=== PATIENT | male | born 1955 | race Caucasian/White ===

== ENCOUNTER 2016-11-06 08:57 | Observation (INO) ==
[2016-11-06] MEDS ORDERED: Aspirin 81 MG TAB.CHEW PO ONE (09:09)
--- NOTE | 2016-11-06 09:14 | Emergency Department Note ---
Disposition Clinical Impression: Atypical chest pain Disposition: Admitted As Inpatient Condition: Good Referrals: Parth Chapman DO [Primary Care Provider] - Forms: ED Satisfaction Letter Time of Disposition: 10:00 Chest Pain HPI - General Chief Complaint: ED Chest Pain Stated Complaint: C/P Time Seen by Provider: 11/06/16 09:00 Source: patient, family () Mode of arrival: wheelchair Limitations: no limitations Vital Signs Reviewed: Yes Nursing Notes Reviewed: Yes - History of Present Illness HPI Narrative: 61-year-old male history of CAD s/p PCI x2 (most recent 2014), PVD, hypertension , hyperlipidemia, pack per day smoker presents with a concern for heart attack. Patient reports this morning at 7 o'clock he woke up feeling lightheaded with the feeling of passing out with associated left-sided chest pressure with no radiation. Denies loss of consciousness. Symptoms lasted for 1 minute. He is currently asymptomatic. He did not take anything for the pain. He took a baby aspirin this morning. He did not feel sure breath, diaphoretic, nauseated or any episode of vomiting. This concerned him as his prior to heart attacks were similar nature. 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 He drank water and improved at that time. His last heart catheterization was 2 years ago. He denies any recent illness, fever, cough, vertigo, headache. His lead janitor is Dr. Rick. His 1st heart attack was in 2008 in the most recent 2014 required re-stenting. He denies any falls or injuries. Denies any history of blood clots. Recently started on Chantix 09/06/2016. Pt complaint: chest pain Severity scale (1-10): 2 - Related Data Previous Rx's Medication Instructions Recorded Hydrocodone/Acetaminophen [[place] 1 tab PO Q6H PRN #15 tab 01/18/16 5-325 Tablet] Allergies Allergy/AdvReac Type Severity Reaction Status Date / Time No Known Allergies Allergy Verified 11/06/16 09:21 All systems ED: reviewed and negative except as stated. Constitutional: Reports: weakness. Denies: fever, chills Cardiovascular: Reports: chest pain. Denies: palpitations, dyspnea on exertion Respiratory: Denies: cough, dyspnea Gastrointestinal: Denies: abdominal pain, nausea, vomiting, diarrhea Genitourinary: Denies: urgency, dysuria Musculoskeletal: Denies: back pain, neck pain Integumentary: Denies: rash, abrasion Neurological: Denies: headache, confusion Endocrine: Reports: fatigue Chest Pain PMH - Past Medical History Medical history: Reports: hyperlipidemia, myocardial infarction, peripheral artery disease Psychiatric history: Reports: no psych history Prior Cardiac Testing/Procedures: Stenting - Social History Smoking Status: Current every day smoker Alcohol use: Reports: occasionally Drug use: Reports: none Physical Exam - General Limitations: no limitations General appearance: alert, in no apparent distress - Head Head exam: atraumatic, normocephalic, normal inspection - Eye Eye exam: Present: normal appearance, PERRL, EOMI. Absent: scleral icterus - ENT ENT exam: normal exam, normal oropharynx, mucous membranes moist - Neck Neck exam: Present: normal inspection, full ROM, trachea midline. Absent: tenderness - Chest Chest inspection: Present: normal inspection, symmetric chest wall rise. Absent : tenderness - Respiratory Respiratory exam: Present: normal lung sounds bilaterally. Absent: respiratory distress, wheezes - Cardiovascular Cardiovascular exam: Present: regular rate, normal rhythm, normal heart sounds. Absent: systolic murmur, diastolic murmur - Abdominal Exam Abdominal exam: Present: soft, Non-Tender, normal bowel sounds. Absent: tenderness, distention, guarding, rebound, rigidity - Extremities Exam Extremities exam: Present: normal inspection, full ROM, normal capillary refill. Absent: tenderness, pedal edema, calf tenderness - Back Exam Back exam: Present: normal inspection, full ROM. Absent: tenderness, CVA tenderness (R), CVA tenderness (L), vertebral tenderness - Neurological Exam Neurological exam: Present: alert, oriented X3, CN II-XII intact, normal gait - Expanded Neurological Exam Patient oriented to: Present: person, place, time Speech: Present: fluid speech Cranial nerves: EOM function (II, III, IV, ): Normal, facial sensation (V): Normal, facial palsy (VII): Normal, gag reflex (IX): Normal, spinal accessory function (XI): Normal, tongue deviation (XII): Normal Motor strength - LUE: 5/5 Motor strength - RUE: 5/5 Motor strength - LLE: 5/5 Motor strength - RLE: 5/ - Psychiatric Psychiatric exam: Present: normal affect, normal mood - Skin Skin exam: Present: warm, dry, intact, normal color Course Course Narrative: 61-year-old male history of CAD presents with chest pressure and lightheadedness. These symptoms are typical of his prior to MIs. He is currently asymptomatic free. Review of his vitals are stable, normotensive. 97% oxygen saturation. His exam is otherwise unremarkable. Heart is regular rate and rhythm. Neurologic exam is normal without any focal neural deficits. Chest pain workup initiated. EKG reveals right bundle branch block without any ST elevation or depressions. Findings are consistent with his prior EKG performed 04/23/2008. Patient is given a full dose aspirin. Review of eCW. On 10/21 he had a NSTEMI with successful PTCA/SABA placement in the mid RCA. They stent placed from his prior procedure in the mid circumflex was also occluded. Intermediate 50-60% mid LAD stenosis. ECHO at that time showed abnormal contractility EF 40-45%. - Reevaluation(s) Reevaluation #1: Labs and images reviewed. Chest x-ray appears normal. Troponin 0. His labs or otherwise unremarkable. HEART score is 4. Given his history with his prior NSTEMIs and today's symptoms being similar, patient is agreeable to observation. Impression is atypical chest pain R/O ACS. Time: 09:58 - Consultations Consultation #1: Spoke with on-call hospitalist marielena Peter to admit for atypical chest pain R/ O ACS. No further orders at this time Time: 10:05 Vital Signs Temperature 97.6 F 11/06/16 09:05 Pulse Rate 62 11/06/16 09:05 Respiratory Rate 16 11/06/16 09:05 Blood Pressure 128/86 11/06/16 09:05 O2 Sat by Pulse Oximetry 97 11/06/16 09:05 Temperature 97.6 F 11/06/16 09:05 Pulse Rate 56 11/06/16 09:21 Respiratory Rate 20 11/06/16 09:21 Blood Pressure 106/75 11/06/16 09:21 O2 Sat by Pulse Oximetry 95 11/06/16 09:21 Oxygen Delivery Oxygen Delivery Room Air Chest Pain - Medical Records Medical records reviewed: Yes I reviewed the patient's medical records. - Lab Data Lab results reviewed: Yes I reviewed the patient's lab results. Result diagrams: 11/06/16 09:15 11/06/16 09:15 Lab Results 11/06/16 11/06/16 11/06/16 Range/Units 09:15 09:15 09:15 WBC 9.2 (4.3-11.1) K/mcL RBC 5.11 (4.19-5.50) M/mcL Hgb 15.7 (12.9-16.9) g/dL Hct 46.1 (37.5-50.1) % MCV 90.2 (83.0-100.0) fL MCH 30.7 (28.0-33.3) pg MCHC 34.1 (31.6-35.5) g/dL RDW 13.1 (11.5-14.5) % Plt Count 269 (140-400) K/mcL MPV 9.9 (9.4-12.4) fL Immature Gran % 0.4 (0-4) % Seg Neutrophils % 63.5 % Lymphocytes % 24.2 % Monocytes % 7.4 % Eosinophils % 4.0 % Basophils % 0.5 % Neutrophils # 5.8 (1.6-8.9) K/mcL Lymphocytes # 2.2 (0.6-4.6) K/mcL Monocytes # 0.7 (0.0-1.3) K/mcL Eosinophils # 0.4 (0.0-0.6) K/mcL Basophils # 0.1 (0.0-0.2) K/mcL Sodium 140 (136-145) mEq/L Potassium 4.2 (3.5-4.5) mEq/L Chloride 106 (98-109) mEq/L Carbon Dioxide 24 (19-29) mEq/L BUN 11 (8-26) mg/dL Creatinine 0.84 (0.72-1.25) mg/dL Est GFR ( Amer) > 60 (> 60) Est GFR (Non-Af Amer) > 60 (> 60) BUN/Creatinine Ratio 13 (6-26) Glucose 109 H (70-99) mg/dL Calculated Osmolality 290 (280-300) Calcium 9.3 (8.6-10.8) mg/dL Troponin I 0.00 (0-0.03) ng/mL - Radiology Data Radiology results reviewed: Yes I reviewed the patient's radiology results. Chest X-Ray 11/06/16 09:09 IMPRESSION: No acute cardiopulmonary process. D/ / 11/06/2016 09:23:51 Hemant Wylie MD / cammie Interpreting Provider: Hemant Wylie MD - EKG Data EKG attestation: Yes I reviewed and interpreted this EKG. EKG results narrative: EKG performed 902 normal sinus rhythm 60 bpm, right bundle branch block QRS 123 , there are no ST elevations or depressions, no T-wave inversions. Other intervals are within normal limits MO interval 114 QT QTC 402 403. Compared to old EKG performed 04/23/2008 shows consistent findings of sinus rhythm with RBBB. No acute ischemic changes. Heart Score - Score History: Slightly Suspicious EKG: Non Specific repolarisation Disturbance Age: 45-65 Risk Factors: Equal/Greater than 3 risk factor or history of atherosclerotic disease Troponin: Less than normal limit HEART Score Total: 4 Attestation Statement - Attestation Attestation: I examined this patient and my medical decision-making was reviewed with the ASSOCIATE PROFESSOR OF LIBRARY SCIENCE/PA/Advanced Practice Nurse/Resident Physician. I agree with the documented findings, disposition and treatment plan as described except to the extent set forth below.
[2016-11-06 09:20] LABS: Basophils # 0.1 K/mcL (0.0-0.2); Basophils % 0.5 %; Eosinophils # 0.4 K/mcL (0.0-0.6); Hematocrit 46.1 % (37.5-50.1); Hemoglobin 15.7 g/dL (12.9-16.9); Immature Granulocytes % 0.4 % (0-4); Lymphocytes # 2.2 K/mcL (0.6-4.6); Lymphocytes % 24.2 %; Mean Corpuscular HGB Conc 34.1 g/dL (31.6-35.5); Mean Corpuscular Hemoglobin 30.7 pg (28.0-33.3); Mean Corpuscular Volume 90.2 fL (83.0-100.0); Mean Platelet Volume 9.9 fL (9.4-12.4); Monocytes # 0.7 K/mcL (0.0-1.3); Monocytes % 7.4 %; Neutrophils # 5.8 K/mcL (1.6-8.9); Platelet Count 269 K/mcL (140-400); Red Blood Count 5.11 M/mcL (4.19-5.50); Red Cell Distribution Width 13.1 % (11.5-14.5); Segmented Neutrophils % 63.5 %
[2016-11-06 09:31] LABS: BUN/Creatinine Ratio 13 (6-26); Blood Urea Nitrogen 11 mg/dL (8-26); Calcium 9.3 mg/dL (8.6-10.8); Carbon Dioxide 24 mEq/L (19-29); Chloride 106 mEq/L (98-109); Glucose 109 mg/dL (70-99); Osmolality,Calculated 290 (280-300); Potassium 4.2 mEq/L (3.5-4.5); Sodium 140 mEq/L (136-145); eGFR For African Americans > 60 (> 60); eGFR For Non-African Americans > 60 (> 60)
[2016-11-06] MEDS ORDERED: 0.9 % Sodium Chloride 1,000 ML IVC ONE (09:40)
[2016-11-06] MEDS ORDERED: *HR* Morphine 2 MG/ML SYRINGE IVP PRN (11:13)
[2016-11-06] MEDS ORDERED: Naloxone 0.4 MG/ML INJ IVP PRN (11:13)
[2016-11-06] MEDS ORDERED: Acetaminophen 325 MG TABLET PO PRN (11:13)
[2016-11-06] MEDS ORDERED: *HR* HYDROcodone/Acet 5/325 mg TABLET PO PRN (11:13)
[2016-11-06] MEDS ORDERED: Nitroglycerin 0.4 MG TAB.SUBL SL PRN (11:27)
--- NOTE | 2016-11-06 11:44 | Internal Med History&Physical ---
<[email or web address] page - Last Filed: 11/06/16 13:37> Date of Encounter: 11/06/16 Time of Encounter: 10:30 Assessment and Plan (1) Chest pain Current visit: Yes Status: Acute Patient presents with new onset of atypical chest pain he describes as chest pressure accompanied with lightheadedness for the past week also with generalized weakness and fatigue. Patient has a history to MIs, first 2008 with 2 stents placed and second in 2014 with 2 more stents placed. Patient denies SOB, diaphoresis, nausea, vomiting, headache. Echocardiogram, nuclear stress test, and bilateral carotid Doppler duplex imaging ordered. Orders for bilateral BPs daily, cardiac telemetry, continuation of patient's Plavix and aspirin therapy, and nitroglycerin when necessary also placed. We will consider cardiology consult based on results of testing. Patient currently sees Dr. Rick. Qualifiers: Chest pain type: precordial pain Qualified Code(s): R07.2 - Precordial pain (2) Lightheadedness Current visit: Yes Status: Acute Patient presents with complaint of lightheadedness that accompanies his atypical chest pressure. Patient reports episodes are transient and denies presyncope and syncope but states the episodes make him quite dizzy. Order for bilateral carotid Doppler duplex imaging, falls precautions, [id number] only , and bed rest with bathroom privileges. (3) HLD (hyperlipidemia) Current visit: Yes Status: Chronic Patient presents with history of hyperlipidemia and was placed on Lipitor. We will continue Lipitor. Lipid panel ordered. Qualifiers: Hyperlipidemia type: other hyperlipidemia Qualified Code(s): E78.4 - Other hyperlipidemia (4) HTN (hypertension) Current visit: Yes Status: Chronic Patient presents with history of hypertension for which he was placed on Lopressor. We will continue Lopressor and monitor patient's vital signs. Qualifiers: Hypertension type: other secondary hypertension Qualified Code(s): I15.8 - Other secondary hypertension (5) PAD (peripheral artery disease) Current visit: Yes Status: Chronic Patient presents with history of peripheral artery disease with claudication. Patient to be monitored and placed as falls precautions/up with assist. (6) DVT prophylaxis Current visit: Yes Status: Acute Patient to be placed on DVT prophylaxis due to admission protocol, bedrest status, and current risk factors. Heparin 5,000 units SQ Q12 ordered. We will monitor patient for any signs of abnormal bleeding. Internal Medicine - H&P: HPI Chief complaint: Chest pressure/Atypical chest pain Admitted From: Emergency Dept Plans for Post Hospital Care: Home History of present illness: Mr. Gustafson is a 61 year old male who presents from the ED with chief complaint of atypical chest pain he describes as chest pressure accompanied by lightheadedness that has been occurring since last without radiation. Patient describes the episodes as transient and sporadic and states he has been experiencing generalized weakness and fatigue with the symptoms. Mr. Gustafson explains he had an episode previously last at work while working in [place] when he became extremely lightheaded and also experienced chest pressure. Patient has a history of 2 MIs with the first being in 2008 with 2 stent placement and the second in 2014 with 2 more stents placed. He reports ever since having stent placement 2014 he has been experiencing dizzy spells and headaches. Patient has a medical history of PAD, CA x2, and tobacco abuse smoking 1 pack per day. Patient currently has cough related to tobacco abuse without sputum production. Lungs clear on auscultation. Patient was placed on Lopressor and Lipitor as a preventative measure by Dr. Rick who is the patient' s components engineer. Patient's family history includes CA, strokes, and DVTs. Patient denies shortness of breath, diaphoresis, nausea, vomiting, presyncope, syncope, PE/DVT history, falls, abnormal bleeding, or changes in vision. Patient is at moderate risk due to risk factors and previous history of MIs and will be placed as observation status with orders for EV echocardiogram, nuclear Farms stress test, bilateral carotid Doppler duplex imaging, continuous cardiac telemetry, bilateral BPs daily, nitroglycerin when necessary, and continuation of patient's current medications. Patient to be monitored closely. Time spent with patient greater than 40 minutes. Past Med Surg Social Fam HX - Past Medical History Source: patient Medical history: hyperlipidemia (Placed on Lipitor as preventative measure ), hypertension (Placed on Lopressor as preventative measure), myocardial infarction (x2 in 2008 and 2014 with 4 stents placed), peripheral artery disease Psychiatric history: no psych history - Past Surgical History Surgical History: angioplasty/stent (x4), orthopedic, other (Broken left arm x3) - Social History Smoking Status: Current every day smoker Packs per day: 1 PPD Smokeless Tobacco Status: No Alcohol use: occasionally Drug use: none Occupational status: employed Current living situation: Home, With Family Activity Level: Independent ambulation Recent Out of Country Travel Within the Last 8 Weeks: No Exposure or Possible Exposure to Illness During Travel: No - Family History Father Race: Family Member Ethnicity: Non- Living Status: Age at : 72 Cause of : CA Hx Family Cardiac Disorders: Yes (CA) Hx Family Cancer: Yes Mother Race: Family Member Ethnicity: Non- Living Status: Age at : 80 Cause of : Stroke Hx Family Cardiac Disorders: Yes (Stroke, DVT) Brother Race: Family Member Ethnicity: Non- Living Status: Age at : 55 Cause of : Hernandez's disease Hx Family Medical Disorders: Yes (Hernandez's disease) Internal Medicine - H&P: Meds Aspirin Enteric Coated [Aspirin EC] 81 mg PO DAILY 11/06/16 [History] Atorvastatin Calcium [Lipitor] 80 mg PO HS 11/06/16 [History] Clopidogrel [Plavix] 75 mg PO DAILY 11/06/16 [History] Metoprolol [Lopressor] 25 mg PO BID 11/06/16 [History] Allergies No Known Allergies Allergy (Verified 11/06/16 09:21) All Systems PM: A 10-system review of systems was performed and is negative for pertinent findings except as documented above in the HPI. - Constitutional Constitutional: as per HPI, fatigue, no chills, no fever(s), no night sweats - EENT Eyes: no change in vision, no discharge, no pain, no photophobia Ears: no ear discharge, no ear pain, no tinnitus Nose, mouth and throat: no dysphagia, no nasal discharge, no neck pain, no sore throat - Breasts Breasts: as per HPI - Cardiovascular Cardiovascular ROS IM: as per HPI, chest pain (Atypical chest pressure), claudication (Bilaterally in LE due to PAD), lightheadedness, no diaphoresis, no dyspnea, no palpitations, no syncope - Respiratory Respiratory: as per HPI, cough (Due to tobacco abuse), no dyspnea, no wheezing, no excessive phlegm production - Gastrointestinal Gastrointestinal: no abdominal pain, no diarrhea, no hematemesis, no hematochezia, no melena, no nausea, no vomiting - Genitourinary Genitourinary ROS male: as per HPI - Musculoskeletal Musculoskeletal ROS IM: no numbness, no tingling - Integumentary Integumentary IM: no rash, no unusual bruising - Neurological Neurological ROS: no confusion, no convulsions, no focal weakness, no numbness, no tingling, no tremor(s) - Psychiatric Psychiatric: as per HPI - Endocrine Endocrine IM: as per HPI - Hematologic/Lymphatic Hematologic/Lymphatic: no easy bruising - Allergic/Immunologic Allergic/Immunologic: as per HPI - Constitutional Vitals: Temp Pulse Resp BP Pulse Ox 97.5 F L 55 16 132/83 95 11/06/16 11:21 11/06/16 11:21 11/06/16 11:21 11/06/16 11:21 11/06/16 11:21 General appearance: Present: cooperative, A&O X 3, pleasant, no acute distress, answers questions appropriately - Head Head exam: Present: atraumatic, normocephalic - Eye Eye exam: Present: PERRL, conjuntiva pink, sclera anicteric Pupils: Present: PERRL - ENT ENT exam: Present: normal exam, normal external ear exam - Neck Neck exam general surgery: Present: normal inspection, supple, trachea midline - Respiratory Respiratory exam: Present: CTAB. Absent: accessory muscle use, rales, rhonchi, wheezes - Cardiovascular Cardiovascular exam: Present: RRR, +S1, +S2. Absent: diastolic murmur, gallop, rubs, systolic murmur - GI/Abdominal GI/Abdominal exam: Present: normal bowel sounds, soft, no peritoneal signs. Absent: distended, tenderness - Rectal Rectal exam: Present: deferred - Additional comments: exam deferred. - Extremities Exam Extremities exam: Present: warm, radial pulses palpable and symetrical. Absent : calf tenderness, cyanotic, pedal edema - Back Exam Back exam: Present: normal inspection - Neurological Exam Neurological exam: Present: CN II-XII intact, oriented X3, no focal deficits. Absent: pronater drift, facial droop, speech deficit - Psychiatric Psychiatric exam: Present: normal affect, normal mood - Skin Skin exam: Present: dry, intact Internal Med - H&P Results - Labs CBC & Chem 7: 11/06/16 09:15 11/06/16 09:15 - EKG Data EKG shows normal: sinus rhythm - EKG Data When compared to previous EKG: there is no significant change EKG comments: 11/06/16 11:54 EKG dated 04/23/08 shows sinus bradycardia with left axis deviation, early repo , inferior/lateral T-wave changes are nonspecific. EKG dated 11/06/16 shows sinus rhythm with short TN interval, indeterminate axis , right bundle branch block. - Diagnostic Studies Chest x-ray Additional comments: Impressions Chest X-Ray 11/06/16 09:09 IMPRESSION: No acute cardiopulmonary process. D/ / 11/06/2016 09:23:51 Hemant Wylie MD / cammie Interpreting Provider: Hemant Wylie MD <Terence Santana - Last Filed: 11/06/16 13:56> Date of Encounter: 11/06/16 Time of Encounter: 12:30 Internal Medicine - H&P: HPI History of present illness: Mr. Gustafson is a 61 year old male All Systems PM: A 10-system review of systems was performed and is negative for pertinent findings except as documented above in the HPI. - Constitutional Vitals: Temp Pulse Resp BP Pulse Ox 97.5 F L 55 16 132/83 95 11/06/16 11:21 11/06/16 11:21 11/06/16 11:21 11/06/16 11:21 11/06/16 11:21 Internal Med - H&P Results - Labs CBC & Chem 7: 11/06/16 09:15 11/06/16 09:15 - Attending Attestation I examined this patient and my medical decision-making was reviewed with the nurse practitioner. I agree with the documented history of present illness, review of systems, past medical, surgical social and family histories and examination findings, disposition and treatment plan as described above except to any changes set forth below. 61-year-old male patient with history of coronary artery disease status post PCI and stents presented to the ER with complaints of chest pain. He has also been having episodes of dizziness since Monday. He has not passed out. Usually his dizziness occurs when he stands up from a sitting or lying down position quickly. It lasts for a few seconds and almost feels like she is going to blackout. Denies any palpitations. No shortness of breath. No fever chills or night sweats. No nausea or vomiting. On examination, S1 and S2 normal. Respiratory sounds are normal. No pedal edema. Chest pain: Observation with telemetry. Monitor vital signs. Trend troponins. Cardiac stress test tomorrow. Dizziness and lightheadedness: No orthostatic symptoms. We will check orthostatic blood pressure. Also get carotid Dopplers and 2-D echocardiogram to complete workup. Telemetry monitoring. Coronary artery disease: Continue home medications for this condition.
[2016-11-06] MEDS: *HR* Heparin 5,000 UNIT/ML VIAL SQ SCH (18:08)
[2016-11-07 04:31] LABS: Basophils # 0.1 K/mcL (0.0-0.2); Basophils % 0.6 %; Eosinophils # 0.3 K/mcL (0.0-0.6); Eosinophils % 3.6 %; Hematocrit 42.9 % (37.5-50.1); Hemoglobin 14.8 g/dL (12.9-16.9); Immature Granulocytes % 0.2 % (0-4); Lymphocytes # 2.1 K/mcL (0.6-4.6); Lymphocytes % 25.4 %; Mean Corpuscular HGB Conc 34.5 g/dL (31.6-35.5); Mean Corpuscular Hemoglobin 31.2 pg (28.0-33.3); Mean Corpuscular Volume 90.5 fL (83.0-100.0); Mean Platelet Volume 10.5 fL (9.4-12.4); Monocytes # 0.5 K/mcL (0.0-1.3); Monocytes % 6.2 %; Neutrophils # 5.4 K/mcL (1.6-8.9); Platelet Count 231 K/mcL (140-400); Red Blood Count 4.74 M/mcL (4.19-5.50); Red Cell Distribution Width 13.2 % (11.5-14.5)
[2016-11-07 04:36] LABS: INR 1.2; Prothrombin Time 12.7 Seconds (9.4-12.1)
[2016-11-07 04:38] LABS: Activated Partial Thrombo Time 32.4 Seconds (26.0-36.0)
[2016-11-07 04:41] LABS: BUN/Creatinine Ratio 13 (6-26); Blood Urea Nitrogen 11 mg/dL (8-26); Calcium 8.9 mg/dL (8.6-10.8); Carbon Dioxide 26 mEq/L (19-29); Chloride 108 mEq/L (98-109); Chol/HDL Ratio 2.9 (0-4.9); Cholesterol 87 mg/dL (< 200); Glucose 97 mg/dL (70-99); HDL Cholesterol 30 mg/dL (40-59); LDL Cholesterol,Calculated 44 mg/dL (0-99); Magnesium 1.9 mg/dL (1.6-2.6); Osmolality,Calculated 289 (280-300); Potassium 4.1 mEq/L (3.5-4.5); Sodium 140 mEq/L (136-145); Triglycerides 64 mg/dL (< 150); eGFR For African Americans > 60 (> 60); eGFR For Non-African Americans > 60 (> 60)
[2016-11-07] MEDS: *HR* Heparin 5,000 UNIT/ML VIAL SQ SCH (05:09)
[2016-11-07] MEDS ORDERED: Regadenoson 0.4 MG/5 ML SYRINGE IVP ONE (06:40)
[2016-11-07] MEDS ORDERED: Aspirin Enteric Coated 81 MG Tablet PO SCH (09:00)
--- NOTE | 2016-11-07 09:53 | Nuclear Medicine Stress Report ---
Regadenoson Nuclear Stress Name: Nitin Gustafson Date of Study: 11/07/2016 Date: 1955 Ht: 65.0 in Medical Record#: [id number] Age: 61 Wt: 155.0 lb Gender: Male Order #: [id number] Location: [facility] Room: [facility] Supervising Provider: Omer Colon CNP Reading Physician: Diony Alba DO, [facility], [facility] Ordering Physician: Elda Rodriguez CNP Primary Care Physician: Robert Rick MD, [facility] Stress Technologist: Maritza James RIGGER, CCT [employer] Machine Operator: Franco Platt Indications: Chest Pain Impression: Pharmacologic stress ECG is negative for ischemia at level of heart rate achieved. Gated EF = 52%. Large sized, moderate intensity, fixed inferior and inferolateral defect suggestive of a prior infarct. Perfusion imaging was negative for ischemia. History: Hypertension Hypercholesteremia History of Smoking Prior PCI Stress Test Summary: Stress Test Type: Pharmacologic Regadenoson 0.4mg/5ml given IV Baseline Information: Initial Heart Rate: 56 Blood Pressure: 100/60 Stress Information: Test Terminated Due to (primary): As per protocol Maximum Blood Pressure: 100/62 Maximum Heart Rate: 75 Percent Maximum Heart Rate Achieved: 48 Double Product: 7700 METS Reached: 10 Symptoms: No chest symptoms Nuclear Summary: SPECT myocardial perfusion imaging using Tc99m Sestamibi given intravenously was performed at rest and following cardiac stress testing. The resting images were obtained following initial dose of 10.6 mCi. Following stress an additional dose of 32.4 mCi was given at peak exercise or 30 seconds post regadenoson infusion. Medication Given: Time Medication Dose Units Route Findings: Stress Note * Sinus bradycardia. * No baseline arrhythmias were noted. * Pharmacologic stress ECG is negative for ischemia at level of heart rate achieved. * No arrhythmias were noted during stress. * Patient had no chest pain during stress. Hemodynamic responses * Normal hemodynamic responses to pharmacologic stress. Study Quality * Study quality is average. Gated EF % * Gated EF = 52%. Left Ventricle * The left ventricle is not dilated. * LVEDV = 115 mL. Inferior Perfusion Rest * The inferior and inferolateral segments show a moderate reduction in perfusion. Inferior Perfusion Stress * The inferior and inferolateral segments show a moderate reduction in perfusion. TID * No evidence of transient ischemic dilatation. TID ratio * TID ratio = 1.08. Lung Uptake * There is no evidence of increase lung uptake. Updated by Diony Alba DO, CURRY, LUBNA, SO on 11/07/2016 9:46:38 AM electronically signed on 11/07/2016 9:47:26 AM with status of Final
[2016-11-07 10:32] VITALS: BP 127/82
--- NOTE | 2016-11-07 13:32 | Electrocardiograph Report ---
[place] [address] Test Date: 2016-11-06 Pat Name: Nitin Gustafson Department: 102 Room: 3B Gender: M Search Engineer: [place] : 1955 Requested By: Edson Byers Order Number: [id number] Reading MD: Robert Rick MD Measurements Intervals [place] Rate: 60 P: 56 [place]: 114 QRS: 72 QRSD: 123 T: 49 QT: 402 QTc: 403 Interpretive Statements SINUS RHYTHM WITH SHORT OH INTERVAL INDETERMINATE AXIS RIGHT BUNDLE BRANCH BLOCK Electronically Signed On 11-07-2016 13:31:34 EDT by Robert Rick MD
--- NOTE | 2016-11-07 15:55 | Discharge Summary ---
Date of Encounter: 11/07/16 Time of Encounter: 13:35 - Discharge Diagnosis (1) Tobacco abuse Priority: Secondary Status: Chronic Comments: Patient is a smoker. He has requested to leave the unit multiple times to smoke. Not interested in smoking cessation at this time. (2) DVT prophylaxis Priority: Secondary Status: Acute Comments: Subcutaneous heparin daily. (3) HLD (hyperlipidemia) Priority: Secondary Status: Chronic Comments: Chronic. Continue home medications. Qualifiers: Hyperlipidemia type: other hyperlipidemia Qualified Code(s): E78.4 - Other hyperlipidemia (4) HTN (hypertension) Priority: Secondary Status: Chronic Comments: Chronic. Well controlled. Continue home medications. Qualifiers: Hypertension type: other secondary hypertension Qualified Code(s): I15.8 - Other secondary hypertension (5) PAD (peripheral artery disease) Priority: Secondary Status: Chronic Comments: Continue home medications. Chronic. (6) Lightheadedness Priority: Secondary Status: Acute Comments: Patient reports this was the primary symptom of his prior MRI. He says this is why he came to the emergency department in the first place. He reports lightheadedness over the last several days. It has resolved. He has not had chest pain. He denies shortness of breath, nausea, vision changes, chest pain, headache, changes in speech or strength. Results as above. (7) CAD (coronary artery disease) Priority: Secondary Status: Chronic Comments: Patient denies chest pain. Continue aspirin, statin, beta gomez. Qualifiers: Coronary Disease-Associated Artery/Lesion type: samish artery Crow vs. transplanted heart: samish heart Associated angina: without angina Qualified Code(s): I25.10 - Atherosclerotic heart disease of samish coronary artery without angina pectoris - Discharge Medications Home Medications: Aspirin Enteric Coated [Aspirin EC] 81 mg PO DAILY 11/06/16 [History] Atorvastatin Calcium [Lipitor] 80 mg PO HS 11/06/16 [History] Clopidogrel [Plavix] 75 mg PO DAILY 11/06/16 [History] Metoprolol [Lopressor] 25 mg PO BID 11/06/16 [History] Allergies/Adverse Reactions: Allergies No Known Allergies Allergy (Verified 11/06/16 09:21) Procedures/tests Complete & Pending: Procedures Performed prior 72 hours Category Date Time Status NM donavon perf SPECT multi [NM] Routine Exams 11/06/16 06:02 Taken EV carotid duplex imaging BI Routine Y 11/07/16 11:24 Completed EV echocardiogram Stat Y 11/07/16 11:23 Completed SP pharm nuclear stress Routine Y 11/07/16 08:00 Completed Date of admission: 11/06/16 10:12 Primary care physician: Parth Chapman, Consults: 11/07/16 11:12 Consult to Cardiology [CONS] Routine Comment: Consulting Provider: Cardiology [facility] Reason for Consult: chest pain, 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 Time Notified: 11:12 Call Completed: Yes Discharging clinician: Elda Rodriguez Anticipated date of discharge: 11/07/16 - Patient Status Disposition: Home, Self-Care Functional capacity at discharge: independent ambulation Overall status at discharge: patient is back to baseline - Discharge Instructions Follow Up With: Parth Chapman DO [Primary Care Provider] - Additional Instructions: Follow-up with her primary care physician in the next 7-10 days for follow-up visit Continue normal home medications Stop smoking Return to the emergency department if you have any other concerning symptoms. - Diet and Activity Activity: increase activity as tolerated Diet: low fat, low cholesterol, low salt diet Hospital course: Mr. Gustafson is a 61 year old male prior history of GA, hyperlipidemia, hypertension, peripheral artery disease. Patient denies chest pain. He emphatically says he never had chest pain.e reports lightheadedness for the p at bedtime total of 4 coronary artery stents. He denies shortness of breath, diaphoresis, nausea, vomiting, headache. Rates this felt like his prior GA. Echocardiogram showed LVEF 50-55%, normal LV chamber size and wall thickness, mild segmental left ventricular systolic dysfunction but overall normal LVEF. Moderate left ventricular diastolic dysfunction, right ventricular structure and function is normal. No evidence of pulmonary hypertension and no significant valvular dysfunction. Stress test was negative for ischemia or infarct with a gaited EF of 52%. There was a large, moderate intensity, fixed inferior and inferolateral defect suggestive of prior infarct, which we are aware of. Carotid showed nonstenotic plaque on right bifurcation, left side normal. Troponins were negative. Chest x-ray was negative for any acute pulmonary process. Physical exam is unremarkable. Vital signs and labs within normal limits. Patient has mentioned to staff several times that he is going to leave because he wants to go outside to smoke. Patient is stable and appropriate for discharge. - Time Spent with Patient Total time spent providing and/or coordinating discharge services: Less than 30 minutes - Constitutional Vitals: Temp Pulse Resp BP Pulse Ox 98.1 F 62 14 127/82 97 11/07/16 10:30 11/07/16 10:30 11/07/16 10:30 11/07/16 10:30 11/07/16 10:30 General appearance: Present: A&O X 3, pleasant, no acute distress, answers questions appropriately. Absent: cooperative - Head Head exam: Present: normal inspection - Eye Eye exam: Present: normal appearance, conjuntiva pink - ENT ENT exam: Present: mucous membranes moist, normal exam - Neck Neck exam general surgery: Present: normal inspection. Absent: lymphadenopathy , tenderness - Respiratory Respiratory exam: Present: CTAB. Absent: rales, rhonchi, stridor, wheezes - Cardiovascular Cardiovascular exam: Present: RRR, +S1, +S2. Absent: diastolic murmur, systolic murmur - GI/Abdominal GI/Abdominal exam: Present: normal bowel sounds, tenderness. Absent: hepatomegaly, soft - Extremities Exam Extremities exam: Present: normal capillary refill, warm, radial pulses palpable and symetrical. Absent: pedal edema - Neurological Exam Neurological exam: Present: alert, oriented X3, no focal deficits, strengths equal and symetr throughout. Absent: pronater drift, facial droop, speech deficit - Skin Skin exam: Present: dry, normal color, warm
--- NOTE | 2016-11-08 19:49 | Carotid Imaging Report ---
Carotid Duplex Patient Name:Nitin Gustafson Order Number:[id number] Procedure Date:11/07/2016 Date:8Age:61 yrs Gender:Male Lt BP:109 / 70 mmHg Rt.BP:109 / 70 mmHgHeart Rate: Location:[facility] Room #: 3B31 [employer] Cook:Cristine Maxwell Referring MD:Giacomo Stone CNP manufacturing engineering technician:Roge Chapman DO Reading MD:Homer Calzada MD Primary Indications:Chest pressure Risk Factors Yes/No Hx of CAD/PTCA Smoking Current Impressions: Findings: Bilateral carotid system has nonstenotic plaque. Findings Carotid Duplex: Right: There is nonstenotic plaque in the right bifurcation. There is smooth heterogeneous plaque. Prior Study: No prior study available for comparison. Carotid Results Right PSV EDV Assessment Proximal CCA 49 13 Normal Mid CCA 67 22 Normal Distal CCA 64 23 Normal Bifurcation 60 20 Non Stenotic Plaque Proximal ICA 28 13 Normal Mid ICA 69 26 Normal Distal ICA 95 30 Normal ECA 58 13 Normal Vertebral Artery 65 19 Antegrade Flow Left PSV EDV Assessment Proximal CCA 88 20 Normal Mid CCA 72 18 Normal Distal CCA 74 22 Normal Bifurcation 69 22 Normal Proximal ICA 62 23 Normal Mid ICA 80 33 Normal Distal ICA 81 33 Normal ECA 52 21 Normal Vertebral Artery 27 12 Antegrade Flow Ratio's Right ICA/CCA Ratio: 1.42 ICA/CCA Values: 95/67 Left ICA/CCA Ratio: 1.13 ICA/CCA Values: 81/72 Updated by Homer Calzada MD on 11/08/2016 7:42:50 PM electronically signed on 11/08/2016 7:43:08 PM with status of Final
== END 2016-11-07 16:30 | disposition home or self-care (01) ==
LOC: 3BNU 08:57 → EMEROO 08:57 → 3BNU 10:27
PROVIDERS: ADMIT Internal Medicine; ATTEND Registered Nurse